=== PATIENT | female | born 1990 | race Hispanic/Latino ===

== ENCOUNTER 2019-04-05 11:17 | Inpatient (IN) | payer OTHER ==
[2019-04-05 11:49] VITALS: BMI 39.9
[2019-04-05] MEDS ORDERED: FLU VACC QS2019-20(6MOS UP)/PF 60 MCG/0.5 ML SYRINGE IM ONE (12:15)
[2019-04-05 12:30] LABS: Amnisure Test RUPTURE DETECTED (No Rupture)
[2019-04-05 12:31] LABS: Amnisure Internal Control QC ACCEPTABLE (ACCEPTABLE)
[2019-04-05] MEDS: Lactated Ringer's 1,000 ML IV SCH ×3 (13:55→21:35)
[2019-04-05] MEDS ORDERED: Promethazine HCl 25 MG/ML VIAL IM PRN ×2 (14:41→18:34)
[2019-04-05] MEDS ORDERED: HYDROcodone/Acetaminophen 5/325 mg Tablet PO PRN (14:41)
[2019-04-05] MEDS ORDERED: Misoprostol 200 MCG TAB PR PRN (14:41)
[2019-04-05] MEDS ORDERED: hydrALAZINE 20 MG/ML VIAL SLOW IVP PRN (14:41)
[2019-04-05] MEDS ORDERED: Ondansetron PF 4 MG/2 ML Vial IVP PRN ×2 (14:41→18:34)
[2019-04-05] MEDS ORDERED: Lidocaine 1% (PF) 30 ML VIAL SC PRN (14:41)
[2019-04-05] MEDS ORDERED: Ibuprofen 800 MG TAB PO PRN (14:41)
[2019-04-05] MEDS ORDERED: NS w/ Oxytocin 10 units 500 ML IV SCH (14:45)
[2019-04-05 15:07] LABS: Mean Corpuscular Hemoglobin 30.4 pg (27.0-31.0); Mean Corpuscular Volume 86.6 fL (78.0-98.0); Mean Platelet Volume 9.4 fL (7.4-10.4); Platelet Count 156 thou/uL (130-400); RBC Distribution Width 12.5 % (11.5-14.5); Red Blood Cell (RBC) Count 4.27 mill/uL (4.20-5.40); White Blood Cell (WBC) Count 10.1 thou/uL (4.8-10.8)
[2019-04-05 15:47] LABS: HBSAg Index 0.17 S/CO (0-0.99); Hep B Surf Ag Non-Reactive S/CO (NonReactive); Syphilis Antibody Nonreactive (Nonreactive); Syphilis Antibody Index 0.03 S/CO (<1.00 Non-Reactive)
[2019-04-05] MEDS ORDERED: Fentanyl 4 mcg/Bup 0.1% Cadd 100 ML ONE (17:53)
[2019-04-05] MEDS ORDERED: Naloxone HCl 0.4 mg/ml Vial IVP PRN ×2 (18:34)
[2019-04-05] MEDS ORDERED: diphenhydrAMINE 50 MG/ML VIAL IVP PRN (18:34)
[2019-04-05] MEDS ORDERED: Lactated Ringer's 500 ML IV PRN (18:34)
[2019-04-05] MEDS ORDERED: Acetaminophen 325 MG TAB PO PRN (18:34)
[2019-04-05] MEDS ORDERED: ePHEDrine/0.9% NaCl/PF SYRINGE 50 mg/10 ml SLOW IVP PRN (18:34)
[2019-04-05] MEDS ORDERED: Communication Order-Pharmacy FS SCH (18:45)
[2019-04-05] MEDS ORDERED: Fentanyl 4 mcg/Bupivacaine 0.1% Cassette 100 ML EPIDURAL SCH (18:45)
[2019-04-05] MEDS ORDERED: NS / Oxytocin 40 units/1000ml 1,000 ML ONE (20:06)
[2019-04-06] MEDS: NS / Oxytocin 40 units/1000ml 1,000 ML IV PRN ×2 (01:05→02:09)
[2019-04-06] MEDS ORDERED: Benzocaine-Menthol 82.5 ML CAN TOP PRN (01:11)
[2019-04-06] MEDS ORDERED: Bisacodyl 10 MG SUPP PR PRN (01:11)
[2019-04-06] MEDS ORDERED: Lanolin Ointment 7 GM TUBE TOP PRN (01:11)
[2019-04-06] MEDS ORDERED: traMADol HCl 50 MG TAB PO PRN (01:11)
[2019-04-06] MEDS ORDERED: hydrALAZINE 20 MG/ML VIAL SLOW IVP PRN (01:11)
[2019-04-06] MEDS ORDERED: Milk Of Magnesia 30 ML UDCUP PO PRN (01:11)
[2019-04-06] MEDS ORDERED: Preparation H Ointment 28 GM TUBE PR PRN (01:11)
--- NOTE | 2019-04-06 01:11 | PDOC.OPDEL ---
OB Operative/Delivery Note Delivery Dr/Surgeon: Silvestre Pre-Delivery Diagnosis: active labor Procedure/Post Delivery Dx: spontaneous vaginal delivery Weeks gestation: 40 Anesthesia: epidural - Findings A Sex: male Weight: 8 lb 5 oz - 1 min: 9 - 5 min: 9 - Additional Findings/Plan Placenta delivered: spontaneous Repaired Obstetrical Laceration: vaginal Estimated blood loss: 125ml qbl Post delivery plan: routine recovery
[2019-04-06] MEDS ORDERED: NS / Oxytocin 40 units/1000ml 1,000 ML IV SCH (01:15)
[2019-04-06] MEDS: Ibuprofen 800 MG TAB PO SCH ×3 (02:18→20:36)
--- NOTE | 2019-04-06 07:46 | PDOC.PP ---
Post Progress Note Post Day #: 0-1 PO intake tolerated: yes Flatus: yes Ambulation: yes Vital Signs (12 hours) Temp Pulse Resp BP Pulse Ox 04/06/19 05:15 98.2 F 59 L 18 107/61 99 04/06/19 03:50 98.5 F 57 L 18 109/57 L 99 Weight Weight 233 lb Result Diagrams: 04/05/19 14:59 Additional Labs: Post Labs Blood Type B POSITIVE 04/05/19 14:59 Hep Bs Antigen Non-Reactive S/CO (NonReactive) 04/05/19 14:59 - Assessment/Plan Post day 0-1.. Doing well. Routine care . Anticipate discharge in AM.
[2019-04-06] MEDS ORDERED: Adacel (T-DAP) 0.5 ML SYRINGE IM ONE (09:00)
[2019-04-06] MEDS: Ferrous Sulfate 325 MG TAB PO SCH ×2 (09:27→17:33)
[2019-04-06] MEDS: Docusate Calcium (SURFAK) 240 MG CAP PO SCH ×2 (09:46→20:36)
[2019-04-06] MEDS: Prenatal Vitamin 1 TAB PO SCH (09:46)
[2019-04-07] MEDS: Ibuprofen 800 MG TAB PO SCH (06:30)
[2019-04-07 07:58] VITALS: BP 114/70; TEMP 98.6
[2019-04-07] MEDS: Prenatal Vitamin 1 TAB PO SCH (08:12)
[2019-04-07] MEDS: Docusate Calcium (SURFAK) 240 MG CAP PO SCH (08:12)
[2019-04-07] MEDS: Ferrous Sulfate 325 MG TAB PO SCH (08:13)
--- NOTE | 2019-04-07 08:13 | PDOC.PP ---
Post Progress Note Post Day #: 1-2 PO intake tolerated: yes Flatus: yes Ambulation: yes Vital Signs (12 hours) Temp Pulse Resp BP Pulse Ox 04/07/19 07:17 98.6 F 72 16 114/70 98 04/07/19 00:46 97.6 F 69 18 107/63 04/06/19 20:16 98.1 F 69 16 100/56 L 99 Weight Weight 233 lb Result Diagrams: 04/05/19 14:59 Additional Labs: Post Labs Blood Type B POSITIVE 04/05/19 14:59 Hep Bs Antigen Non-Reactive S/CO (NonReactive) 04/05/19 14:59 - Assessment/Plan Doing well. Ready for discharge home. Followup 6 weeks.
[2019-04-07] MEDS ORDERED: FLU VACC QS2019-20(6MOS UP)/PF 60 MCG/0.5 ML SYRINGE IM ONE (13:00)
== END 2019-04-07 13:30 | disposition home or self-care (01) | DRG 807 ==
LOC: L&D/OP 11:17 → L&D-LIB 13:26 → 3SW 04-06 04:20
PROVIDERS: ADMIT Obstetrics & Gynecology; ATTEND Obstetrics & Gynecology
PROC: 10E0XZZ Delivery of Products of Conception, External Approach (ICD-10-PCS; principal; 2019-04-06)
PROC: 0KQM0ZZ Repair Perineum Muscle, Open Approach (ICD-10-PCS; 2019-04-06)
DX: O70.1 Second degree perineal laceration during delivery (principal); Z37.0 Single live birth; Z3A.40 40 weeks gestation of pregnancy
CPT/HCPCS: 84112; 85027; 86780; 86850; 86900; 86901; 87340; 90471; 90686; G0008; J2590

== ENCOUNTER 2022-10-24 20:11 | Emergency (ER) | payer OTHER ==
[~2022-10-24 20:11] MED LIST: Iopamidol-370 76% 500 ML MDV (1 ML CHARGE) ONE
[2022-10-24 20:44] LABS: #Eosinphils 0.1 thou/uL (0.0-0.7); #Lymphocytes 2.7 thou/uL (1.20-3.40); #Monocytes 0.6 thou/uL (0.11-0.59); #Neutrophils 6.9 thou/uL (1.40-6.50); %Basophils 0.1 % (0.0-1.0); %Eosinophils 0.6 % (0.0-10.0); %Lymphocytes 26.7 % (21.0-51.0); %Monocytes 5.4 % (0.0-10.0); %Neutrophils 67.1 % (42.0-75.0); Hemoglobin 13.3 g/dL (12.0-16.0); Mean Corpuscular HGB CONC 35.3 g/dL (32.0-36.0); Mean Corpuscular Hemoglobin 31.1 pg (27.0-31.0); Mean Corpuscular Volume 88.1 fl (78.0-98.0); Mean Platelet Volume 8.1 fL (7.4-10.4); Platelet Count 195 10x3/uL (130-400); RBC Distribution Width 11.5 % (11.5-14.5); Red Blood Cell (RBC) Count 4.27 mill/uL (4.20-5.40); White Blood Cell (WBC) Count 10.2 10x3/uL (4.8-10.8)
[2022-10-24 20:53] LABS: Bacteria/HPF 3+ HPF (None Seen); Bilirubin Negative (Negative); Blood, Urine 3+ (Negative); Clarity Turbid (Clear); Glucose, Urine (Dipstick) Normal (Negative); Ketone, Urine Negative (Negative); Leukocyte 500 Leu/uL (Negative); Nitrite Negative (Negative); Protein, Urine (Dipstick) 30 mg/dL (Neg-Trace); Specific Gravity, Urine 1.023 (1.002-1.036); Urobilinogen 6 mg/dL (Less than 2); WBC/HPF Greater than 50 HPF (0-3); pH, Urine 7.5 (5.0-9.0)
[2022-10-24 20:54] LABS: Pregnancy Test - Urine (BHCG) Negative (Negative); Pregu Control Background? CLEAR/WHITE (CLR/WHITE); Pregu Control Bar Appear? YES (CONTROL BAR); Specific Gravity 1.023 (1.002-1.036)
[2022-10-24 21:06] LABS: ALT (SGPT) 15 U/L (8-55); AST (SGOT) 11 U/L (5-34); Albumin 3.9 g/dL (3.5-5.0); Alkaline Phosphatase 83 U/L (40-110); Anion Gap 12 mmol/L (10-20); BUN (Urea Nitrogen) 10 mg/dL (7.0-18.7); Bilirubin, Total 0.4 mg/dL (0.2-1.2); Calc. Creatinine Clearance 0 mL/min (70-130); Calcium 9.1 mg/dL (7.8-10.44); Carbon Dioxide 24 mmol/L (22-29); Chloride 107 mmol/L (98-107); Estimated GFR 105; Globulin 3.2 g/dL (2.4-3.5); Glucose 103 mg/dL (70-105); Potassium 3.9 mmol/L (3.5-5.1); Protein, Total 7.1 g/dL (6.0-8.3); Sodium 139 mmol/L (136-145)
[2022-10-24] MEDS ORDERED: Ketorolac Tromethamine 30 MG/ML VIAL ONE (22:01)
[2022-10-24] MEDS ORDERED: Ondansetron PF 4 MG/2 ML Vial ONE (22:01)
== END 2022-10-24 23:40 | disposition home or self-care (01) ==
LOC: ERS 20:11
DX: N39.0 Urinary tract infection, site not specified (principal)
CPT/HCPCS: 36415; 74177; 80053; 81003; 81015; 81025; 83690; 85025; 96374; 96375; J1885; J2405